=== PATIENT | male | born 1970 | race African-American/Black ===

== ENCOUNTER 2019-12-25 10:56 | Emergency (ER) | payer OTHER, SELFPAY ==
[~2019-12-25] VITALS: Ht 175.3 cm; Wt 100.0 kg
[~2019-12-25 10:56] MED LIST: AMLO5TAB9 PO
[2019-12-25] MEDS ORDERED: FURO20 PO (11:07)
[2019-12-25] MEDS ORDERED: ISOS5TAB5 PO (11:07)
[2019-12-25] MEDS ORDERED: CARV3 PO (11:07)
[2019-12-25] MEDS ORDERED: SACU1TAB7 PO (11:07)
[2019-12-25] MEDS ORDERED: SPIR25 PO (11:07)
[2019-12-25] MEDS ORDERED: MOXIFLOXACIN HCL 0.5% 3 ML OPHTHALMIC SOLUTION OU ONE (11:30)
[2019-12-25 12:25] VITALS: BP 140/90
== END 2019-12-25 12:34 | disposition home or self-care (01) ==
LOC: EMS 10:57
DX: H10.89 Other conjunctivitis (principal); I11.0 Hypertensive heart disease with heart failure; I50.9 Heart failure, unspecified; Z79.899 Other long term (current) drug therapy

== ENCOUNTER 2020-03-08 13:35 | Emergency (ER) | payer OTHER ==
[~2020-03-08] VITALS: Ht 175.3 cm; Wt 102.3 kg
[~2020-03-08 13:35] MED LIST changes: +CARV3 PO; +FURO20 PO; +ISOS5TAB5 PO; +SACU1TAB7 PO; +SPIR25 PO
[2020-03-08 15:55] VITALS: BP 172/133
== END 2020-03-08 16:05 | disposition home or self-care (01) ==
LOC: EMS 13:39
DX: H10.9 Unspecified conjunctivitis (principal); I11.0 Hypertensive heart disease with heart failure; I50.9 Heart failure, unspecified; Z79.899 Other long term (current) drug therapy

== ENCOUNTER 2020-03-16 13:45 | Emergency (ER) | payer OTHER ==
[~2020-03-16] VITALS: Ht 175.3 cm; Wt 110.0 kg
[2020-03-16 15:26] LABS: BASOPHILS % (AUTO) 0.6 % (0.0-2.0); EOSINOPHILS % (AUTO) 1.7 % (1.0-6.0); HEMATOCRIT 45.8 % (41-53); HEMOGLOBIN 15.1 g/dL (13.5-17.5); LYMPHOCYTES # (AUTO) 1.8 K/uL (1.0-4.8); LYMPHOCYTES % (AUTO) 22.3 % (22.0-44.0); MEAN CORPUSCULAR HEMOGLOBIN 30.4 pg (26.0-34.0); MEAN CORPUSCULAR VOLUME 92 fL (80-100); MONOCYTES # (AUTO) 0.7 K/uL (0.1-1.0); MONOCYTES % (AUTO) 8.3 % (2.0-9.0); NEUTROPHILS # (AUTO) 5.3 K/uL (1.8-7.7); NEUTROPHILS % (AUTO) 67.1 % (40.0-70.0); PLATELET COUNT (AUTO) 184 K/uL (150-450); RED BLOOD CELL COUNT(AUTO) 4.96 MIL/uL (4.50-5.90); RED CELL DISTRIBUTION WIDTH 13.8 % (11.5-14.5)
[2020-03-16 15:37] LABS: CREATININE 1.74 mg/dL (0.60-1.30); POTASSIUM 3.6 mmol/L (3.5-5.1)
[2020-03-16 15:38] LABS: CALCIUM, TOTAL 8.7 mg/dL (8.8-10.5)
[2020-03-16 15:43] LABS: ALBUMIN 3.8 g/dL (3.4-5.0); BILIRUBIN,TOTAL 0.5 mg/dL (0.1-1.0); TOTAL PROTEIN, SERUM 7.8 g/dL (6.4-8.2)
[2020-03-16 15:52] LABS: APPEARANCE,URINE TURBID (CLEAR); GLUCOSE, URINE (UA) NEGATIVE (NEGATIVE); KETONES,URINE TRACE mg/dL (NEGATIVE); LEUKOCYTE ESTERASE ,URINE LARGE (NEGATIVE); NITRATE,URINE POSITIVE (NEGATIVE); OCCULT BLOOD,URINE LARGE (NEGATIVE); PROTEIN,URINE SEE CONFIRM (NEGATIVE)
[2020-03-16 16:02] LABS: BILIRUBIN,URINE PRELIM. POSITIVE (NEGATIVE)
[2020-03-16 16:03] LABS: BACTERIA,URINE Many /HPF (None Seen); RBC,URINE >100 /HPF (0-2); SULFOSALICYLIC ACID,URINE 3+ (Negative); WBC,URINE 51-100 /HPF (0-5)
[2020-03-16 16:04] LABS: RENAL EPITHELIAL CELLS,URINE Rare /LPF (None Seen)
[2020-03-16] MEDS ORDERED: CefTRIAXone SODIUM 1 GM/VIAL IM ONE (16:30)
[2020-03-16] MEDS ORDERED: LIDOCAINE/PF 1% 2 ML VIAL IM ONE (16:30)
[2020-03-16] MEDS ORDERED: AZITHROMYCIN 500 MG TABLET PO ONE (16:30)
[2020-03-16 17:07] VITALS: BP 171/99
== END 2020-03-16 17:16 | disposition home or self-care (01) ==
LOC: EMS 13:46
DX: N39.0 Urinary tract infection, site not specified (principal); I11.0 Hypertensive heart disease with heart failure; I50.9 Heart failure, unspecified; Z79.899 Other long term (current) drug therapy
CPT/HCPCS: 36415; 80053; 81001; 85025; 87077; 87086; 96372; 99283; J0696; J3490

== ENCOUNTER 2020-11-06 14:47 | Emergency (ER) | payer OTHER ==
[~2020-11-06] VITALS: Ht 175.3 cm; Wt 100.0 kg
[~2020-11-06 14:47] MED LIST changes: +AMLO-257 PO; -AMLO5TAB9 PO
[2020-11-06 14:57] VITALS: BP 197/132
[2020-11-06] MEDS ORDERED: AMLO-258 PO (16:56)
[2020-11-06] MEDS ORDERED: HYDR-4174 PO (16:56)
[2020-11-06] MEDS ORDERED: CARV25 PO (16:56)
[2020-11-06] MEDS ORDERED: CefTRIAXone SODIUM 1 GM/VIAL IM ONE (17:00)
[2020-11-06] MEDS ORDERED: LIDOCAINE/PF 1% 2 ML VIAL IM ONE (17:00)
[2020-11-06] MEDS ORDERED: AZITHROMYCIN 500 MG TABLET PO ONE (17:00)
== END 2020-11-06 17:12 | disposition home or self-care (01) ==
LOC: EMS 14:47
DX: N34.2 Other urethritis (principal); I11.0 Hypertensive heart disease with heart failure; I50.9 Heart failure, unspecified; F17.210 Nicotine dependence, cigarettes, uncomplicated; Z79.899 Other long term (current) drug therapy
CPT/HCPCS: 96372; 99283; J0696; J3490

== ENCOUNTER 2021-10-13 21:45 | Emergency (ER) | payer OTHER ==
[~2021-10-13] VITALS: Ht 175.3 cm; Wt 100.0 kg
[~2021-10-13 21:45] MED LIST changes: -AMLO-257 PO; +AMLO-258 PO; +CARV25 PO; -CARV3 PO; -FURO20 PO; +HYDR-4174 PO; +SPIR-37 PO; -SPIR25 PO
[2021-10-13] MEDS ORDERED: FURO-152 PO (22:01)
[2021-10-13 22:33] LABS: APPEARANCE,URINE CLEAR (CLEAR); BILIRUBIN,URINE NEGATIVE (NEGATIVE); GLUCOSE, URINE (UA) NEGATIVE (NEGATIVE); KETONES,URINE NEGATIVE (NEGATIVE); LEUKOCYTE ESTERASE ,URINE NEGATIVE (NEGATIVE); NITRATE,URINE NEGATIVE (NEGATIVE); OCCULT BLOOD,URINE NEGATIVE (NEGATIVE); PROTEIN,URINE TRACE (NEGATIVE)
[2021-10-13] MEDS ORDERED: DOXYCYCLINE HYCLATE 100 MG TABLET PO ONE (23:15)
[2021-10-13] MEDS ORDERED: CefTRIAXone SODIUM 1 GM/VIAL IM ONE (23:15)
[2021-10-13] MEDS ORDERED: LIDOCAINE/PF 1% 2 ML VIAL IM ONE (23:15)
[2021-10-13 23:38] VITALS: BP 170/112
== END 2021-10-13 23:40 | disposition home or self-care (01) ==
LOC: EMS 21:50
DX: R30.0 Dysuria (principal); F17.210 Nicotine dependence, cigarettes, uncomplicated; I11.0 Hypertensive heart disease with heart failure; I50.9 Heart failure, unspecified
CPT/HCPCS: 81003; 87491; 87591; 96372; 99283; J0696; J3490; 99284

== ENCOUNTER 2021-12-09 16:22 | Emergency (ER) | payer OTHER ==
[~2021-12-09] VITALS: Ht 175.3 cm; Wt 102.3 kg
[~2021-12-09 16:22] MED LIST changes: +FURO-152 PO
[2021-12-09 16:31] VITALS: BP 162/114
== END 2021-12-09 19:00 | disposition left against medical advice (07) ==
LOC: EMS 16:27
DX: R06.02 Shortness of breath (principal); Z53.21 Procedure and treatment not carried out due to patient leaving prior to being seen by health care provider

== ENCOUNTER 2021-12-24 14:43 | Inpatient (IN) | payer OTHER ==
[~2021-12-24] VITALS: Ht 175.3 cm; Wt 94.2 kg
[2021-12-24 15:33] LABS: BASOPHILS % (AUTO) 0.7 % (0.0-2.0); EOSINOPHILS % (AUTO) 1.5 % (1.0-6.0); HEMATOCRIT 42.1 % (41-53); LYMPHOCYTES # (AUTO) 1.3 K/uL (1.0-4.8); LYMPHOCYTES % (AUTO) 13.9 % (22.0-44.0); MEAN CORPUSCULAR HEMOGLOBIN 30.6 pg (26.0-34.0); MEAN CORPUSCULAR HGB CONC 33.2 G/dL (31.0-37.0); MEAN CORPUSCULAR VOLUME 92 fL (80-100); MONOCYTES # (AUTO) 0.6 K/uL (0.1-1.0); MONOCYTES % (AUTO) 6.7 % (2.0-9.0); NEUTROPHILS % (AUTO) 77.2 % (40.0-70.0); PLATELET COUNT (AUTO) 199 K/uL (150-450); RED BLOOD CELL COUNT(AUTO) 4.58 MIL/uL (4.50-5.90); RED CELL DISTRIBUTION WIDTH 14.2 % (11.5-14.5)
[2021-12-24 15:42] LABS: CALCIUM, TOTAL 8.9 mg/dL (8.8-10.5); CREATININE 2.14 mg/dL (0.60-1.30); POTASSIUM 4.3 mmol/L (3.5-5.1)
[2021-12-24 15:48] LABS: PROTHROMBIN TIME 10.6 SEC (9.4-11.6)
[2021-12-24] MEDS ORDERED: FUROSEMIDE 20 MG/2 ML VIAL IVP ONE (16:00)
[2021-12-24 16:02] LABS: D-DIMER 0.54 mg/L FEU (0.00-0.50)
[2021-12-24 16:03] LABS: COVID AG,FIA SOURCE NASOPHARYNGEAL
[2021-12-24 16:08] LABS: ALBUMIN 3.2 g/dL (3.4-5.0); BILIRUBIN,TOTAL 0.9 mg/dL (0.1-1.0); C-REACTIVE PROTEIN QUANT 0.87 mg/dL (0.00-0.30); MAGNESIUM 1.9 mg/dL (1.80-2.40); PHOSPHORUS 2.3 mg/dL (2.5-4.9); TOTAL PROTEIN, SERUM 6.7 g/dL (6.4-8.2)
[2021-12-24] MEDS ORDERED: ASPIRIN 325 MG TABLET PO ONE (16:15)
[2021-12-24] MEDS ORDERED: MAGNESIUM HYDROXIDE SUSPENSION 30 ML UDCUP PO PRN (16:45)
[2021-12-24] MEDS ORDERED: MORPHINE SULFATE 2 MG/ML SYRINGE IVP PRN (16:45)
[2021-12-24] MEDS ORDERED: HYDROCODONE/ACETAMINOPHEN 5-325 MG TABLET PO PRN (16:45)
[2021-12-24] MEDS ORDERED: BISACODYL 10 MG RECTAL RECTAL SUPPOSITORY PR PRN (16:45)
[2021-12-24] MEDS ORDERED: ZOLPIDEM TARTRATE 5 MG TABLET PO PRN (16:45)
[2021-12-24] MEDS ORDERED: ONDANSETRON HCL 4 MG/2 ML VIAL IVP PRN (16:45)
[2021-12-24] MEDS ORDERED: ACETAMINOPHEN 325 MG TABLET PO PRN (16:45)
[2021-12-24 16:46] LABS: APPEARANCE,URINE CLEAR (CLEAR); BILIRUBIN,URINE NEGATIVE (NEGATIVE); GLUCOSE, URINE (UA) NEGATIVE (NEGATIVE); KETONES,URINE NEGATIVE (NEGATIVE); LEUKOCYTE ESTERASE ,URINE NEGATIVE (NEGATIVE); NITRATE,URINE NEGATIVE (NEGATIVE); OCCULT BLOOD,URINE NEGATIVE (NEGATIVE); PH,URINE 6.5 (5.0-8.0); PROTEIN,URINE NEGATIVE (NEGATIVE); UROBILINOGEN,URINE 0.2 mg/dL (<=1.0)
[2021-12-24 17:31] VITALS: BP 166/110
[2021-12-24 20:39] VITALS: BP 139/90
[2021-12-24] MEDS: DOCUSATE SODIUM 100 MG CAPSULE PO SCH (20:41)
[2021-12-24] MEDS: HydrALAZINE HCL 50 MG TABLET PO SCH (20:41)
[2021-12-24] MEDS: FUROSEMIDE 20 MG/2 ML VIAL IVP SCH (20:41)
[2021-12-24] MEDS: CARVEDILOL 25 MG TABLET PO SCH (20:41)
[2021-12-24] MEDS: SACUBITRIL/VALSARTAN 49-51 MG TABLET PO SCH (20:42)
[2021-12-24] MEDS: HEPARIN SODIUM,PORCINE 5,000 UNITS/ML VIAL SQ SCH (23:35)
[2021-12-25 06:27] VITALS: BP 146/100
[2021-12-25 07:30] VITALS: BP 142/100
[2021-12-25] MEDS: SACUBITRIL/VALSARTAN 49-51 MG TABLET PO SCH (08:29)
[2021-12-25] MEDS: DOCUSATE SODIUM 100 MG CAPSULE PO SCH (08:30)
[2021-12-25] MEDS: FUROSEMIDE 20 MG/2 ML VIAL IVP SCH (08:30)
[2021-12-25] MEDS: HydrALAZINE HCL 50 MG TABLET PO SCH (08:30)
[2021-12-25] MEDS: CARVEDILOL 25 MG TABLET PO SCH (08:30)
[2021-12-25] MEDS: HEPARIN SODIUM,PORCINE 5,000 UNITS/ML VIAL SQ SCH ×2 (08:31→16:00)
[2021-12-25] MEDS ORDERED: AmLODIPine BESYLATE 10 MG TABLET PO SCH (09:00)
[2021-12-25] MEDS ORDERED: ASPIRIN 81 MG DR TABLET PO SCH (09:00)
[2021-12-25] MEDS ORDERED: PANTOPRAZOLE SODIUM 40 MG DR TABLET PO SCH (09:00)
[2021-12-25] MEDS ORDERED: SPIRONOLACTONE 25 MG TABLET PO SCH (09:00)
[2021-12-25 10:37] LABS: BASOPHILS % (AUTO) 0.8 % (0.0-2.0); EOSINOPHILS % (AUTO) 2.5 % (1.0-6.0); HEMATOCRIT 45.3 % (41-53); HEMOGLOBIN 15.2 g/dL (13.5-17.5); LYMPHOCYTES # (AUTO) 1.2 K/uL (1.0-4.8); LYMPHOCYTES % (AUTO) 18.8 % (22.0-44.0); MEAN CORPUSCULAR HEMOGLOBIN 31.1 pg (26.0-34.0); MEAN CORPUSCULAR HGB CONC 33.5 G/dL (31.0-37.0); MEAN CORPUSCULAR VOLUME 93 fL (80-100); MONOCYTES # (AUTO) 0.4 K/uL (0.1-1.0); MONOCYTES % (AUTO) 6.9 % (2.0-9.0); NEUTROPHILS # (AUTO) 4.4 K/uL (1.8-7.7); RED BLOOD CELL COUNT(AUTO) 4.88 MIL/uL (4.50-5.90); RED CELL DISTRIBUTION WIDTH 14.3 % (11.5-14.5)
[2021-12-25 10:39] LABS: PLATELET COUNT (AUTO) 207 K/uL (150-450)
[2021-12-25 11:12] LABS: CREATININE 2.27 mg/dL (0.60-1.30); POTASSIUM 3.7 mmol/L (3.5-5.1)
[2021-12-25 11:40] VITALS: BP 128/98
[2021-12-25] MEDS ORDERED: FURO-152 PO (13:15)
[2021-12-26] MEDS ORDERED: FUROSEMIDE 20 MG/2 ML VIAL IVP SCH (07:00)
== END 2021-12-25 17:00 | disposition home or self-care (01) | DRG 194 ==
LOC: EMS 14:43 → 5N 16:24
PROVIDERS: ADMIT Internal Medicine; ATTEND Internal Medicine
DX: I13.0 Hypertensive heart and chronic kidney disease with heart failure and stage 1 through stage 4 chronic kidney disease, or unspecified chronic kidney disease (principal); J96.00 Acute respiratory failure, unspecified whether with hypoxia or hypercapnia; R65.11 Systemic inflammatory response syndrome (SIRS) of non-infectious origin with acute organ dysfunction; N17.9 Acute kidney failure, unspecified; I50.23 Acute on chronic systolic (congestive) heart failure; E78.5 Hyperlipidemia, unspecified; E78.00 Pure hypercholesterolemia, unspecified; E87.4 Mixed disorder of acid-base balance; N18.4 Chronic kidney disease, stage 4 (severe); I42.8 Other cardiomyopathies; Z20.822 Contact with and (suspected) exposure to COVID-19; Z95.810 Presence of automatic (implantable) cardiac defibrillator; Z79.899 Other long term (current) drug therapy; Z79.82 Long term (current) use of aspirin
CPT/HCPCS: 71045; 80048; 80053; 81003; 82550; 83735; 83880; 84100; 84484; 85025; 85379; 85610; 85730; 86140; 93005; 93306; 99291; J1644; J1940; Q9967; 36415-L1; 36415-TC

== ENCOUNTER → 2024-05-18 | Emergency (ER) | payer OTHER ==
[~2024-05-18] VITALS: Ht 177.8 cm; Wt 97.7 kg
[~2024-05-18] MED LIST changes: +ASPI-1444 PO; +CLON0.2T PO; -HYDR-4174 PO; +HYDR50TA37 PO; +ISOS30TA92 PO; -ISOS5TAB5 PO; +SACU1TAB PO; -SACU1TAB7 PO
[2024-05-18 09:42] VITALS: TEMP 98
[2024-05-18 11:08] LABS: BASOPHILS % (AUTO) 1.1 % (0.0-2.0); EOSINOPHILS % (AUTO) 2.9 % (1.0-6.0); HEMATOCRIT 39.6 % (41-53); HEMOGLOBIN 12.9 g/dL (13.5-17.5); LYMPHOCYTES # (AUTO) 1.2 K/uL (1.0-4.8); LYMPHOCYTES % (AUTO) 18.9 % (22.0-44.0); MEAN CORPUSCULAR HEMOGLOBIN 29.7 pg (26.0-34.0); MEAN CORPUSCULAR HGB CONC 32.7 G/dL (31.0-37.0); MEAN CORPUSCULAR VOLUME 91 fL (80-100); MONOCYTES # (AUTO) 0.5 K/uL (0.1-1.0); MONOCYTES % (AUTO) 8.3 % (2.0-9.0); NEUTROPHILS # (AUTO) 4.3 K/uL (1.8-7.7); NEUTROPHILS % (AUTO) 68.8 % (40.0-70.0); PLATELET COUNT (AUTO) 225 K/uL (150-450); RED BLOOD CELL COUNT(AUTO) 4.35 MIL/uL (4.50-5.90); RED CELL DISTRIBUTION WIDTH 14.9 % (11.5-14.5); WHITE BLOOD COUNT (AUTO) 6.3 K/uL (4.5-11.0)
[2024-05-18] MEDS: SPIRONOLACTONE 25 MG TABLET PO ONE (11:17)
[2024-05-18] MEDS: HydrALAZINE HCL 25 MG TABLET PO ONE (11:17)
[2024-05-18 11:18] LABS: CREATININE 5.19 mg/dL (0.60-1.30)
[2024-05-18] MEDS: FUROSEMIDE 20 MG TABLET PO ONE (11:18)
[2024-05-18] MEDS: CloNIDine HCL 0.1 MG TABLET PO ONE (11:18)
[2024-05-18] MEDS: CARVEDILOL 25 MG TABLET PO ONE (11:21)
[2024-05-18] MEDS: ISOSORBIDE DINITRATE 10 MG TABLET PO ONE (11:22)
[2024-05-18 11:32] VITALS: BP 203/127; PULSE 87; RESP 18
[2024-05-18 11:38] LABS: TROPONIN I-HIGH SENSITIVITY 605 ng/L (<76)
== END | disposition still patient (30) ==
LOC: EMS 09:40
DX: R60.0 Localized edema (principal); I11.0 Hypertensive heart disease with heart failure; I50.9 Heart failure, unspecified; R79.89 Other specified abnormal findings of blood chemistry; N17.9 Acute kidney failure, unspecified; Z79.899 Other long term (current) drug therapy
CPT/HCPCS: 80048; 83880; 84484; 85025; 93005; 93971; 99291